=== PATIENT | male | born 1970 | race Hispanic/Latino ===

== ENCOUNTER 2019-06-20 16:10 | Inpatient (IN) | payer SELFPAY ==
[2019-06-20] MEDS ORDERED: Clindamycin/D5W 900 mg/50 ml Premix Bag ONE (16:56)
[2019-06-20] MEDS ORDERED: Adacel (T-DAP) 0.5 ML SYRINGE ONE (16:56)
--- NOTE | 2019-06-20 16:57 | RAD ---
XR Elbow Lt 2 View INDICATION: History of left upper extremity, concern for foreign body with swelling and redness FINDINGS: Bones: No acute fracture or subluxation is evident.. Joints: No joint capsular distention. Radiocapitellar alignment appears within normal limits. Soft tissues: There is circumferential soft tissue swelling of the left elbow. No radiopaque foreign body is demonstrated. IMPRESSION: Soft tissue swelling left elbow. No radiopaque foreign body.
[2019-06-20 17:42] LABS: Mean Corpuscular HGB CONC 36.3 g/dL (32.0-36.0); Mean Corpuscular Volume 93.7 fL (78.0-98.0); Platelet Count 337 thou/uL (130-400); RBC Distribution Width 10.8 % (11.5-14.5); Red Blood Cell (RBC) Count 3.24 mill/uL (4.70-6.10); White Blood Cell (WBC) Count 15.8 thou/uL (4.8-10.8)
[2019-06-20 17:52] LABS: ALT (SGPT) 16 U/L (8-55); AST (SGOT) 22 U/L (5-34); Albumin 2.1 g/dL (3.5-5.0); Alkaline Phosphatase 116 U/L (40-150); Anion Gap 17 mmol/L (10-20); BUN (Urea Nitrogen) 35 mg/dL (8.9-20.6); Bilirubin, Total 0.3 mg/dL (0.2-1.2); CK (CPK) 182 U/L (30-200); Calc. Creatinine Clearance 0 mL/min (70-130); Calcium 7.8 mg/dL (7.8-10.44); Carbon Dioxide 17 mmol/L (22-29); Chloride 89 mmol/L (98-107); Estimated GFR-MDRD 33; Globulin 3.3 g/dL (2.4-3.5); Potassium 4.2 mmol/L (3.5-5.1); Protein, Total 5.4 g/dL (6.0-8.3)
[2019-06-20 17:57] LABS: Glucose 743 mg/dL (70-105); Sodium 119 mmol/L (136-145)
[2019-06-20] MEDS ORDERED: Insulin Regular 300 UNITS/3 ML VIAL ONE (18:08)
[2019-06-20 18:12] LABS: Band 9 % (5-11); Eosinophils 1 % (0-10); Lymphocytes 4 % (21-51); MDiff Complete? YES; Monocytes 2 % (0-10); Neutrophil 84 % (42-75); Platelet Morphology Comment Appears Adequate; Polychromasia SLIGHT = 2-3 cells (100X) (0-2/hpf)
[2019-06-20] MEDS ORDERED: Acetaminophen 325 MG TAB PO PRN (19:49)
[2019-06-20] MEDS ORDERED: HYDROcodone/Acetaminophen 5/325 mg Tablet PO PRN (19:49)
[2019-06-20] MEDS ORDERED: Dextrose 50% Abboject 50 ML SYRINGE SLOW IVP PRN (19:58)
[2019-06-20] MEDS ORDERED: Dextrose 5% in Water 1,000 ML IV PRN (19:58)
[2019-06-20] MEDS ORDERED: Amlodipine 5 MG TAB PO SCH (20:30)
[2019-06-20] MEDS ORDERED: Acetaminophen 325 MG TAB ONE (21:47)
[2019-06-20] MEDS: Sodium Chloride 0.45% 1,000 ML IV SCH (21:55)
[2019-06-20 22:07] LABS: Anion Gap 18 mmol/L (10-20); BUN (Urea Nitrogen) 32 mg/dL (8.9-20.6); Calc. Creatinine Clearance 0 mL/min (70-130); Calcium 7.7 mg/dL (7.8-10.44); Carbon Dioxide 17 mmol/L (22-29); Chloride 94 mmol/L (98-107); Estimated GFR-MDRD 36; Potassium 3.8 mmol/L (3.5-5.1); Sodium 125 mmol/L (136-145)
--- NOTE | 2019-06-20 22:07 | ULT ---
Renal ultrasound: 06/20/2019 COMPARISON: None HISTORY: Kidney disease, acute versus chronic TECHNIQUE: Multiplanar grayscale sonographic imaging of the kidneys and urinary bladder obtained. FINDINGS: The right kidney measures 9.1 x 4.6 x 4.5 cm. Cortical thickness on the right is 1.5 cm. No renal mass, hydronephrosis, or stone noted on the right. Left kidney measures 12.1 x 6.0 x 5.7 cm and demonstrates no stone, hydronephrosis, or mass. Trace free fluid is seen adjacent to bilateral kidneys. A small amount of nonspecific debris is noted within the urinary bladder. IMPRESSION: Incidental findings as detailed above. No evidence for hydronephrosis. Nonspecific small volume urinary bladder debris and trace nonspecific free fluid adjacent to bilateral kidneys.
[2019-06-20 22:16] LABS: Glucose 574 mg/dL (70-105)
[2019-06-20 22:53] VITALS: BMI 18.8
[2019-06-20] MEDS: Piperacillin/Tazobactam 3.375 GM in Sodium Chloride 0.9% 100 ML IVPB SCH (23:19)
[2019-06-20] MEDS ORDERED: Sodium Chloride 0.9% 1,000 ML IV SCH (23:30)
[2019-06-21 00:06] LABS: Anion Gap 18 mmol/L (10-20); BUN (Urea Nitrogen) 30 mg/dL (8.9-20.6); Calc. Creatinine Clearance 44 mL/min (70-130); Calcium 7.8 mg/dL (7.8-10.44); Carbon Dioxide 15 mmol/L (22-29); Chloride 94 mmol/L (98-107); Estimated GFR-MDRD 37; Potassium 3.7 mmol/L (3.5-5.1); Sodium 123 mmol/L (136-145)
[2019-06-21 00:09] LABS: Glucose 558 mg/dL (70-105)
[2019-06-21 00:32] LABS: Bacteria/HPF None Seen HPF (None Seen); RBC/HPF 0-3 HPF (0-3); Squamous Epithelial None Seen HPF (0-3); WBC/HPF 0-3 HPF (0-3)
[2019-06-21] MEDS ORDERED: D5 1/2 NS w/20 mEq KCL 1,000 ML IV PRN (00:43)
[2019-06-21] MEDS ORDERED: CCU Electrolyte Replacement 1 EACH IVPB ONE (00:43)
[2019-06-21] MEDS ORDERED: Sodium Chloride 0.9% 1,000 ML IV PRN (00:43)
[2019-06-21] MEDS ORDERED: Dextrose 5 %-0.45 % NaCl 1,000 ML IV PRN (00:43)
[2019-06-21] MEDS ORDERED: HUMULIN R 100 UNITS in Sodium Chloride 0.9% 100 ML IVPB SCH (00:45)
[2019-06-21] MEDS ORDERED: Potassium Chloride 40 MEQ in Sodium Chloride 0.9% 250 ML 250 ML IVPB PRN (00:47)
[2019-06-21] MEDS ORDERED: Magnesium 2 GM/50 ML 2 GM in Premix Bag 1 BAG IVPB PRN (00:47)
[2019-06-21] MEDS ORDERED: Potassium Phosphate 15 MMOL in Sodium Chloride 0.9% 250 ML 250 ML IV PRN (00:47)
[2019-06-21] MEDS ORDERED: Potassium Chloride 40 MEQ in Premix Bag 1 BAG IVPB PRN (00:47)
[2019-06-21] MEDS ORDERED: Potassium Phosphate 12 MMOL in Sodium Chloride 0.9% 250 ML 250 ML IV PRN (00:47)
[2019-06-21] MEDS ORDERED: PHOS-NAK 1 PKT PACK PO PRN ×2 (00:47)
[2019-06-21] MEDS ORDERED: Magnesium Oxide 400 MG TAB PO PRN ×2 (00:47)
[2019-06-21] MEDS ORDERED: Potassium Chloride 20 MEQ TAB PO PRN (00:47)
[2019-06-21] MEDS ORDERED: CCU ELECTROLYTE REPLACEMENT PROTOCOL FS PRN (00:47)
[2019-06-21] MEDS ORDERED: Potassium Phosphate 9 MMOL in Sodium Chloride 0.9% 100 ML IVPB PRN (00:47)
--- NOTE | 2019-06-21 02:20 | HP ---
CHIEF COMPLAINT: Left arm infection. HISTORY OF PRESENT ILLNESS: This patient is a 48-year-old male who has some mental health issues, which he says is only related to depression. He states that he ran out of his insulin 10-14 days ago and has not had money to get any more insulin. He reports about 10 days ago he was carrying some boards across his forearms when a small nail on one of the boards poked his left antecubital area. Since that time, he has developed progressive erythema, pain and swelling proximal to that puncture site. He reports some drainage at the puncture site itself. He denies any fevers or chills. REVIEW OF SYSTEMS: He does admit to significant polyuria, polydipsia and dry mouth. He has some lower extremity edema, which he reports has only been present for a couple of weeks. All of the systems reviewed. All pertinent positives and negatives noted in history of present illness. PAST MEDICAL HISTORY: Notable for hypertension, diabetes, and peripheral neuropathy. PAST SURGICAL HISTORY: Right 2nd toe amputation secondary to a diabetic wound that would not heal. FAMILY HISTORY: Mother is . She had diabetes. Father in an automobile accident. SOCIAL HISTORY: The patient says he will have a beer every few weeks. Denies drugs or tobacco. He is unemployed. Lives with his brother. He is full code. CURRENT MEDICATIONS: 1. Lisinopril 10 mg daily. 2. Novolin 70/30 20 units q.a.m. and 10 q.p.m.; however, the patient is not currently taking the medications. ALLERGIES: NONE. PHYSICAL EXAMINATION: VITAL SIGNS: BP 172/99, pulse 91, respirations 22, temperature 98.1, O2 saturation 100% on room air. GENERAL APPEARANCE: Age-appropriate male, he is very thin. He is in no distress. He is awake and alert. He seems to be doing some swallowing as if he is having some drainage. HEENT: MIHIR, no acute lesions. Dry oral mucosa. No drainage noted. NECK: Supple and symmetric with no lymphadenopathy, JVD, or carotid bruits. HEART: Regular rate and rhythm without murmurs, gallops, or rubs. LUNGS: Clear to auscultation bilaterally. No wheezes or rales. ABDOMEN: Soft, nontender, and nondistended. Positive bowel sounds. No masses. No organomegaly. EXTREMITIES: He has this abscess on the left antecubital area emanating more proximally and medial medially. There is open area about a 1 cm x 1.5 in the antecubital area, which is a white denuded area. I cannot express any pus from this area, although he says this is where he has had some drainage coming proximally that there is about a 4-5 cm, very firm, indurated, very tender area with no fluctuance. This area extends medially and cephalad and becomes progressively less firm as it goes up toward the axilla. This area is very erythematous and warm. He reports tenderness to palpation in this area, although it does not appear to be exquisite tenderness. 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 He has 2+ pitting edema at the left ankle to the mid calf and 1+ in the right ankle to the mid calf. NEUROLOGICAL: The patient appears to be intact, moving all extremities spontaneously. Cranial nerves are intact. PSYCHIATRIC: The patient is a bit flat, but pleasant and cooperative. Normal behavior otherwise. LABORATORY DATA: White count 15.8, hemoglobin 11.0, platelets 337. Sodium 119, potassium 4.2, chloride 89, CO2 is 17, BUN 35, creatinine 2.13, glucose 743, subsequent was 538. Lactic acid 1.1. AST 22, ALT 16, alkaline phosphatase 116. CK 182, albumin 2.1. Beta hydroxybutyrate 3.2. IMAGING DATA: X-ray of the left elbow shows soft tissue swelling with no foreign body. A bedside ultrasound performed by the ED physician reportedly showed no pocket in this lesion. IMPRESSION AND PLAN: 1. Abscess of the left upper extremity. This has a fairly strange appearance and it is extremely firm and tender, but not exquisitely tender. There is no drainage. Presently, there is no fluctuance on palpation and no pocket of fluid seen on ultrasound. We will initiate antibiotics, patient received clindamycin in the emergency department. We will expand that to vancomycin and Zosyn. 2. Sepsis. Given the patient's worsening renal function, his elevated white count and his severe hyperglycemia in the presence of an infection qualify for the diagnosis of sepsis. The patient received 2 L of fluid in the emergency department. We will continue to hydrate. Continue with the antibiotics. Surgery has been consulted. However, the patient has a number of metabolic issues to address initially. In spite of this, the patient actually appears fairly nontoxic. 3. Diabetic ketoacidosis. The patient's anion gap is only 17. However, his blood sugars were significantly elevated. He has an underlying infection and his beta hydroxybutyrate is elevated at 3.2. I do not believe it warrants insulin drip. He has received 10 units of insulin in the emergency department. We will give him sliding scale insulin and dose of some long-acting Lantus. 4. Uncontrolled diabetes with blood sugar of 743 down to 538 after the initial dose of insulin. We will continue with the sliding scale. Check a hemoglobin A1c in the morning. 5. Hyponatremia. The patient has pseudohyponatremia secondary to the significantly elevated glucose. We will recheck again in couple hours to ensure, if this is improving with the treatment of the blood sugar and in fact does not represent a true hyponatremia. 6. Acute renal insufficiency. Unfortunately do not have a lot of data points on this patient. His last labs here were in 2014. At that time, his GFR was 0.83, this represents a significant change. However, his BUN to creatinine ratio would not signify a significant prerenal azotemia and would be more likely to suggest a true parenchymal disease. The patient's albumin is low at 2.1, as is total protein suggesting he likely has a significant proteinuria. This would be supported by the significant peripheral edema. We will obtain urine studies and a renal ultrasound. We will go ahead and consult Nephrology as well. 7. Anemia appears to be anemia related to more likely chronic kidney disease. 8. Hypertension. Given the renal function, we will hold the ELANA inhibitor and start amlodipine. 9. Psychiatric: The patient reports depression, says he is on psych medications. We do not have any way of knowing at this point what his psych medications are. We will need to try to reach out to [facility] in the morning to see, if they have some record of the medications that he is actually supposed to be taking and try to get him back on those. Job ID: [id number]
[2019-06-21] MEDS: Sodium Chloride 0.45% 1,000 ML IV SCH ×3 (03:03→20:33)
[2019-06-21] MEDS: HYDROcodone/Acetaminophen 5/325 mg Tablet PO PRN ×3 (06:06→20:33)
[2019-06-21] MEDS: Piperacillin/Tazobactam 3.375 GM in Sodium Chloride 0.9% 100 ML IVPB SCH ×4 (06:06→23:11)
[2019-06-21 06:37] LABS: Hemoglobin A1c 17.2 % (4.0-6.0)
[2019-06-21 06:45] LABS: ALT (SGPT) 15 U/L (8-55); AST (SGOT) 18 U/L (5-34); Alkaline Phosphatase 101 U/L (40-150); Anion Gap 13 mmol/L (10-20); BUN (Urea Nitrogen) 26 mg/dL (8.9-20.6); Bilirubin, Total 0.3 mg/dL (0.2-1.2); Calc. Creatinine Clearance 51 mL/min (70-130); Calcium 7.9 mg/dL (7.8-10.44); Carbon Dioxide 17 mmol/L (22-29); Chloride 102 mmol/L (98-107); Estimated GFR-MDRD 45; Globulin 3.1 g/dL (2.4-3.5); Glucose 148 mg/dL (70-105); Potassium 3.1 mmol/L (3.5-5.1); Protein, Total 5.1 g/dL (6.0-8.3); Sodium 129 mmol/L (136-145)
[2019-06-21] MEDS ORDERED: Dextrose 5%-Lactated Ringers 1,000 ML IV SCH (08:00)
[2019-06-21 08:31] LABS: Magnesium 1.8 mg/dL (1.6-2.6); Phosphorus 2.5 mg/dL (2.3-4.7)
[2019-06-21] MEDS ORDERED: Amlodipine 5 MG TAB PO SCH (09:00)
[2019-06-21] MEDS ORDERED: Enoxaparin Sodium 30 MG/0.3 ML SYRINGE SC SCH (09:00)
[2019-06-21] MEDS: Potassium Chloride 20 MEQ TAB PO SCH ×2 (09:07→10:17)
[2019-06-21] MEDS: Famotidine 20 MG TAB PO SCH (09:09)
--- NOTE | 2019-06-21 09:27 | CON ---
DATE OF CONSULTATION: 06/21/2019 REASON FOR CONSULTATION: Acute kidney injury and proteinuria. REQUESTING PHYSICIAN: Endy Car MD HISTORY OF PRESENT ILLNESS: A 48-year-old male patient with known history of diabetes, status post amputation of right second toe, and mental illness, who was admitted due to worsening left upper limb swelling and redness associated with drainage and generalized weakness and illness. The patient reportedly ran out of his insulin about 10 to 14 days ago. About the same time also, he had a nail puncture wound to the left antecubital fossa, which was associated with swelling, redness, and some drainage. He presented to the ED due to worsening left arm swelling and erythema as well as drainage and was found to be in DKA. He was admitted to the IMCU. He was found to have elevated creatinine as well as hypoalbuminemia and proteinuria necessitating Nephrology consult. The patient denied nausea, vomiting, abdominal pain, chest pain, fever, cough, shortness of breath, dysuria, or hematuria, but admitted to chronic bilateral leg swelling, which has not gotten worse. The patient admitted to using [id number] pain medication due to pain of the left upper limb. PAST MEDICAL HISTORY: 1. Hypertension. 2. Diabetes. 3. Diabetic neuropathy. 4. Diabetic foot ulcer status post right second toe amputation. PAST SURGICAL HISTORY: Right second toe amputation. FAMILY HISTORY: Significant for dialysis in mother. SOCIAL HISTORY: The patient drinks alcohol occasionally. Denied recreational drug use or tobacco. He is unemployed and lives with a brother. ALLERGIES: NO KNOWN DRUG ALLERGIES REPORTED. CURRENT HOME MEDICATIONS: 1. Lisinopril 10 mg p.o. daily. 2. Novolin 70/30 of 20 units in the morning and 10 units at bedtime. The patient; however, has not taken these in the last 2 weeks. REVIEW OF SYSTEMS: A 12-point review of system performed was negative other than pertinent positives and negatives included in the history of present illness. PHYSICAL EXAMINATION: VITAL SIGNS: Temperature 98.8, pulse 83, respiratory rate 18, SpO2 of 100% on room air, and blood pressure is 148/89. GENERAL: Slim male, in no obvious distress. Afebrile. Anicteric. Acyanotic. HEENT: Normocephalic and atraumatic. Oral mucosa is moist. NECK: Supple. Nontender with good range of motion. No lymphadenopathy appreciated. CARDIOVASCULAR: Regular rhythm and rate with normal heart sounds one and two. RESPIRATORY: Fair air entry bilaterally with few transmitted sounds. No obvious rhonchi or use of accessory muscles appreciated. GI: Full, soft, nontender, and nondistended with normal bowel sounds. EXTREMITIES: Left elbow area swelling as well as a localized area distal arm associated with erythema and some skin breakdown with minimal drainage. Moderate bilateral leg edema noted. Prior amputation of right second toe noted as well. SOFTWARE TEAM LEADER: Conscious and alert and oriented x3 with appropriate mental status. Cranial nerves 2 through 12 are grossly intact. The patient seems to be slow in mentation. Moves all extremities. DIAGNOSTIC DATA: CBC on June 20, showed WBC count of 15.8, hemoglobin of 11.0, MCV of 93.7, and platelet of 337. CMP today showed sodium 129, potassium 3.1, chloride 102, CO2 of 17, BUN 26, creatinine 1.64, glucose 140, calcium 7.9, total bilirubin 0.3, AST 18, ALT 15, alkaline phosphatase 101, total protein 5.1, albumin 2.0, and globulin 3.1. Of note; however, on presentation on June 20, sodium was 119, potassium was 4.2, chloride was 89, CO2 was 17, BUN was 35, creatinine was 2.13, glucose was 743, and calcium was 7.8. Urine microscopy showed 0 to 3 rbc and 0 to 3 WBC count and random total protein was 363. Beta-hydroxybutyrate done on presentation was 3.2. ASSESSMENT: 1. Acute kidney injury: Most likely due to hemodynamic factors related to volume depletion due to diabetic ketoacidosis. Creatinine is improving with fluid resuscitation. 2. Hyponatremia: This is due to volume contraction with appropriate ADH secretion. 3. Hypokalemia: Due to poor oral intake as well as increased renal losses from glucose-induced diuresis. 4. Chronic kidney disease with proteinuria: Most likely related to uncontrolled diabetes mellitus. 5. Bilateral leg edema: Most likely related to hypoalbuminemia. 6. Hypoalbuminemia: Concerning for poor oral intake as well as renal losses of protein. 7. Uncontrolled diabetes with hemoglobin A1c of 17. 8. Hypertension: BP control currently is acceptable. 9. Left upper limb abscess and cellulitis associated with sepsis. 10. Psychiatric illness with possible cognitive impairment. PLAN: 1. We will continue crystalloids. 2. We will also replete serum potassium. We will also get serum phosphorus and magnesium and replete them as needed. 3. We will get urine electrolytes as well as urine protein creatinine ratio. We will also consider getting 24-hour urine collection to quantify the proteinuria. 4. Renal ultrasound is contemplated as well as bilateral lower extremity Dopplers. 5. We will also get vitamin D given hypocalcemia to rule out vitamin D deficiency. Many thanks for involving us in the care of this patient. We will follow along with you. Job ID: [id number]
[2019-06-21 10:02] LABS: Creatinine, Urine 20.25 mg/dL (63-166)
--- NOTE | 2019-06-21 10:26 | HP ---
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 The patient was admitted yesterday by the hospitalist service. He is on an insulin drip. His hemoglobin is 11 and white count 15. His hemoglobin A1c was 17.2. He reports he had run out of insulin recently and quit taking it. His BUN is 26 and creatinine 1.64. The patient has an area of infection, cellulitis, induration in antecubital left and upper arm. Renal ultrasound was obtained to evaluate his chronic kidney disease and there is no obstructive uropathy. ALLERGIES: NONE. SOCIAL HISTORY: Tobacco, 1/2 pack per day. Alcohol, occasionally. MEDICATIONS: At home, he takes: 1. Lisinopril. 2. Insulin, although he ran out of this and quit taking it for some time. Currently, he is on: 1. Vancomycin. 2. Antihypertensive. PAST SURGICAL HISTORY: Toe amputation. PAST MEDICAL HISTORY: Hypertension; diabetes, insulin dependent chronic kidney disease. PHYSICAL EXAMINATION: VITAL SIGNS: Height 6 feet 2 inches, weight 147 pounds, and 18 BMI. Temperature 98.8, heart rate 99, and blood pressure 148/89. HEAD, EYES, EARS, NOSE, AND THROAT: Unremarkable. LUNGS: Clear to auscultation. CARDIAC: Regular rate and rhythm without murmur or gallop. ABDOMEN: Soft and nontender. EXTREMITIES: Consistent with above history of toe amputation. Palpable radial pulses. Left antecubital area and anterior upper arm just above the AC areas, severe induration and fluctuance. ASSESSMENT AND PLAN: 1. Severe diabetic infection of left upper arm. Plan incision and drainage today. We will keep him n.p.o. until that is performed. We will leave the wound open for healing by secondary intention. This was discussed with the patient. 2. Noncompliant diabetic, with elevated hemoglobin A1c. 3. Chronic kidney disease. 4. Insulin-dependent diabetes, noncompliant. 5. Hypertension. 6. Poor IV access. Plan placement of a possible central line during the operation. Job ID: [id number]
[2019-06-21 11:47] LABS: Anion Gap 11 mmol/L (10-20); BUN (Urea Nitrogen) 24 mg/dL (8.9-20.6); Calc. Creatinine Clearance 54 mL/min (70-130); Calcium 7.7 mg/dL (7.8-10.44); Carbon Dioxide 20 mmol/L (22-29); Chloride 104 mmol/L (98-107); Estimated GFR-MDRD 47; Glucose 123 mg/dL (70-105); Potassium 3.9 mmol/L (3.5-5.1); Sodium 131 mmol/L (136-145)
[2019-06-21] MEDS ORDERED: DC Electrolyte Protocol FS ONE (11:49)
[2019-06-21 11:51] LABS: Albumin 2.1 g/dL (3.5-5.0); Anion Gap 13 mmol/L (10-20); BUN (Urea Nitrogen) 23 mg/dL (8.9-20.6); BUN/Creatinine Ratio 14.74; Calc. Creatinine Clearance 54 mL/min (70-130); Calcium 7.8 mg/dL (7.8-10.44); Carbon Dioxide 19 mmol/L (22-29); Chloride 101 mmol/L (98-107); Estimated GFR-MDRD 48; Glucose 121 mg/dL (70-105); Potassium 3.7 mmol/L (3.5-5.1); Sodium 129 mmol/L (136-145)
--- NOTE | 2019-06-21 11:53 | PDOC.HOSPP ---
- Subjective Encounter Date: 06/21/19 Encounter Time: 11:25 Subjective: Patient seen and examined for DKA and Left arm abscess. No N/V or fever. No new complaints. No overnight events - Objective Vital Signs & Weight: Vital Signs (12 hours) Temp Pulse Pulse Ox 06/21/19 11:16 98.2 F 06/21/19 09:09 82 06/21/19 08:00 99 06/21/19 07:29 98.8 F 06/21/19 03:50 99.0 F 06/21/19 00:42 98.8 F Weight Weight 147 lb 3.2 oz Most Recent Monitor Data Heart Rate from ECG 83 NIBP 148/89 NIBP BP-Mean 108 Respiration from ECG 27 SpO2 100 I&O: 06/20/19 06/21/19 06/22/19 06:59 06:59 06:59 Intake Total 1863 Output Total 1420 Balance 443 Result Diagrams: 06/20/19 17:13 06/21/19 11:12 Additional Labs: Accuchecks 06/21/19 06/21/19 06/21/19 11:07 10:21 09:06 POC Glucose 124 H 130 H 140 H 06/21/19 06/21/19 06/21/19 08:07 07:00 05:50 POC Glucose 86 111 H 158 H 06/21/19 06/21/19 06/21/19 05:03 04:09 03:03 POC Glucose 300 H 451 H 477 H 06/21/19 06/20/19 06/20/19 02:06 22:14 19:07 POC Glucose 453 H Greater than 550 H* 538 H Radiology Reviewed by me: Yes (Left arm XR - No Osteo) EKG Reviewed by me: Yes (Tele SR) ROS - Review of Systems Respiratory: denies: cough, dry, shortness of breath, hemoptysis, SOB with excertion, pleuritic pain, sputum, wheezing, other Cardiovascular: denies: chest pain, palpitations, orthopnea, paroxysmal noc. dyspnea, edema, light headedness, other Gastrointestinal: denies: nausea, vomitting, abdominal pain, diarrhea, constipation, melena, hematochezia, other - Medication Medications: Active Medications Generic Name Dose Route Start Last Admin Trade Name Freq PRN Reason Stop Dose Admin Acetaminophen 650 mg 06/20/19 19:49 06/20/19 21:56 Tylenol PO 650 mg Q4H PRN Administration Headache/Fever/Mild Pain (1-3) Hydrocodone Bitart/Acetaminophen 1 tab 06/20/19 19:49 06/21/19 10:15 [place]on 5/325 PO 1 tab Q4H PRN Administration Moderate Pain (4-6) Hydrocodone Bitart/Acetaminophen 2 tab 06/20/19 19:49 06/21/19 06:06 [place]on 5/325 PO 2 tab Q4H PRN Administration Severe Pain (7-10) Amlodipine Besylate 5 mg 06/21/19 09:00 06/21/19 09:09 Norvasc PO 5 mg DAILY RADHA Administration Enoxaparin Sodium 30 mg 06/21/19 09:00 06/21/19 09:10 Lovenox SC 30 mg 0900 RADHA Administration Famotidine 20 mg 06/21/19 09:00 06/21/19 09:09 Pepcid PO 20 mg DAILY RADHA Administration Piperacillin Sod/Tazobactam 100 mls @ 200 mls/hr 06/20/19 23:59 06/21/19 06: 06 Sod 3.375 gm/ Sodium Chloride IVPB 100 mls Q6HR RADHA Administration Sodium Chloride 1,000 mls @ 250 mls/hr 06/21/19 00:43 06/21/19 01:00 Normal Saline 0.9% IV 1,000 mls .Q4H PRN Administration SEE STEP 3 OF DKA PROTOCOL Protocol Dextrose/Lactated Ringer's 1,000 mls @ 250 mls/hr 06/21/19 08:00 06/21/19 09: 08 D5 Lr IV 06/21/19 11:59 1,000 mls .Q4H RADHA Administration Sodium Chloride 10 ml 06/21/19 09:00 06/21/19 09:10 Flush - Normal Saline IVF 10 ml Q12HR RADHA Administration - Exam NAD Neck: supple, no JVD Heart: RRR, no murmur, no rubs, normal peripheral pulses Respiratory: CTAB, no wheezes, no rales, no ronchi Gastrointestinal: soft, non-tender, no guarding, no rigidity Extremities: no cyanosis, no edema Skin: no rashes Skin - other findings: Left arm abscess with tenderness/warmth Neurological: no new deficit Hosp A/P (1) DKA (diabetic ketoacidoses) Code(s): E11.10 - TYPE 2 DIABETES MELLITUS WITH KETOACIDOSIS WITHOUT COMA Status: Acute Qualifiers: Diabetes mellitus type: type 2 (2) Abscess of left arm Code(s): L02.414 - CUTANEOUS ABSCESS OF LEFT UPPER LIMB Status: Acute (3) MADELEINE (acute kidney injury) Code(s): N17.9 - ACUTE KIDNEY FAILURE, UNSPECIFIED Status: Acute (4) HTN (hypertension) Code(s): I10 - ESSENTIAL (PRIMARY) HYPERTENSION Status: Chronic (5) CKD (chronic kidney disease) stage 3, GFR 30-59 ml/min Code(s): N18.3 - CHRONIC KIDNEY DISEASE, STAGE 3 (MODERATE) Status: Chronic (6) Medical non-compliance Code(s): Z91.19 - PATIENT'S NONCOMPLIANCE W OTH MEDICAL TREATMENT AND REGIMEN (7) Hypokalemia Code(s): E87.6 - HYPOKALEMIA Status: Acute (8) Hypomagnesemia Code(s): E83.42 - HYPOMAGNESEMIA Status: Acute (9) Hypophosphatemia Code(s): E83.39 - OTHER DISORDERS OF PHOSPHORUS METABOLISM Status: Acute - Plan DVT proph w/SCDs For I&D today Cont Vancomycin and Zosyn Monitor Vancomycin level Start NPH 10 units HS DC Insulin drip 1/2 NS @ 125 ml/hr (Complete bag of D5 RL @ 75 ml) Moderate sliding scale Replace electrolytes Transfer to medical AM labs
[2019-06-21] MEDS ORDERED: K-Phos Neutral 250 MG TAB PO SCH (12:00)
[2019-06-21] MEDS ORDERED: Ondansetron PF 4 MG/2 ML Vial ONE (12:03)
[2019-06-21] MEDS ORDERED: Lidocaine 2% PF 5 ML VIAL ONE ×2 (12:03→13:56)
[2019-06-21] MEDS ORDERED: diphenhydrAMINE 50 MG/ML VIAL ONE (12:03)
[2019-06-21] MEDS ORDERED: PROPOFOL 200 MG/20 ML VIAL ONE (12:03)
--- NOTE | 2019-06-21 12:24 | CON ---
DATE OF CONSULTATION: HISTORY OF PRESENT ILLNESS: The patient presented to the hospital with left upper extremity swelling, pus draining. Apparently, he injured his hand, lifting some firewood a week ago. He goes to [facility] for routine care. He is mentally challenged. He has history of uncontrolled diabetes, ran out of his medication. We have seen him because in the MICU consult. He denies any pain, difficulty breathing, shortness of breath, cough. Former smoker, a pack for 3 days. No history of pneumonia or TB. PAST MEDICAL HISTORY: Uncontrolled diabetes, neuropathy, and hypertension. PAST SURGICAL HISTORY: Right toe surgery. SOCIAL HISTORY: Presently disabled. HOME MEDICATIONS: Include; 1. Lisinopril 5. 2. Insulin NPH 70/30 of 20 units. ALLERGIES: NONE. REVIEW OF SYSTEMS: Ten-point negative. PHYSICAL EXAMINATION: GENERAL: On examination, awake, alert, and responsive. VITAL SIGNS: Blood pressure 140/89, saturations are 100%, respirations 18, and pulse 80. CHEST: Decreased breath sounds. No wheezing. CARDIAC: Normal S1 and S2. No gallops. ABDOMEN: No masses. EXTREMITIES: His right forearm and arm has cellulitis and a large pus fluctuating lesion. LABORATORY DATA: His hemoglobin A1c was 17.2. His creatinine is 1.6, sodium 129. White count 15,000, H and H are 9 and 30, platelet count is 330. ASSESSMENT: 1. Uncontrolled diabetes. 2. Left forearm and arm cellulitis, abscess. 3. Azotemia. 4. Hypertension. 5. Neuropathy. PLAN: He is on vancomycin, which should be adequate at this stage. He needs I and D, drainage of his abscess. Await cultures. Adjust antibiotics thereafter. Pulmonary will follow while in the MICU. Job ID: [id number]
[2019-06-21] MEDS ORDERED: Sodium Chloride 0.9% 100 ML ONE (12:55)
[2019-06-21] MEDS ORDERED: Piperacillin/Tazobactam 3.375 GM VIAL ONE (12:55)
[2019-06-21] MEDS ORDERED: Bupivacaine HCl 0.5%/Epinephrine 1:200,000/PF 30 ml Vial ONE (13:56)
[2019-06-21] MEDS ORDERED: Fentanyl 100 MCG/2 ML VIAL ONE (14:13)
[2019-06-21] MEDS ORDERED: Acetaminophen 500 MG TAB PO PRN (15:25)
[2019-06-21] MEDS ORDERED: traMADol HCl 50 MG TAB PO PRN ×2 (15:25)
[2019-06-21] MEDS ORDERED: Meperidine HCl/PF 25 MG/ML VIAL SLOW IVP PRN (15:40)
[2019-06-21] MEDS ORDERED: Promethazine HCl 25 MG/ML VIAL SLOW IVP PRN (15:40)
[2019-06-21] MEDS ORDERED: Ondansetron HCl/PF 4 MG/2 ML Vial IVP PRN (15:40)
--- NOTE | 2019-06-21 15:59 | RAD ---
Exam: Chest one view HISTORY:Central line placement Comparison: 09/27/2012 FINDINGS: Cardiac silhouette: Normal Aorta: Unremarkable Pulmonary vessels: Normal Costophrenic angles: Clear LUNGS: No masses or consolidation. Height and tubes: Right-sided subclavian central venous catheter with the distal tip projecting over the cavoatrial junction. Pneumothorax: None Osseous abnormalities: None IMPRESSION: 1. Right-sided central venous catheter as above. No pneumothorax.
[2019-06-21] MEDS: K-Phos Neutral 250 MG TAB PO SCH ×3 (16:35→16:40)
--- NOTE | 2019-06-21 20:10 | OP ---
DATE OF PROCEDURE: 06/20/2019 PREOPERATIVE DIAGNOSES: Complicated abscess, left arm antecubital area and poor IV access. POSTOPERATIVE DIAGNOSES: Complicated abscess, left arm antecubital area with abscess extending deep to the fascia intramuscular in the biceps and antecubital area and tracking, and poor IV access PROCEDURES PERFORMED: Incision and drainage of complicated abscess, left arm with washout and application of wound VAC. Wound Care Team arrived to do that. Right subclavian vein central line. ANESTHESIA: General anesthesia, local 0.5% Marcaine with epinephrine 30 mL. DESCRIPTION OF PROCEDURE: The patient was taken to the operating room, where under general anesthesia, chest and neck were prepared with ChloraPrep and draped in routine fashion. Right subclavian vein central line placed using Seldinger technique, placed in sterile dressing, aspirating each port with blood and flushed with saline solution. Sterile dressings were applied. Left upper extremity was prepared with ChloraPrep and draped in routine fashion. Incision was made in the antecubital area in the anterior mid upper arm, making 8 cm incision in the upper arm and about a 3 cm in the antecubital area, evacuated a copious amount of purulent material that penetrated deep to the fascia intramuscular to the biceps muscle and tracked into the antecubital area through the second wound. This wound was irrigated copiously with saline solution. Wound Care Team arrived to place wound VAC after local anesthetic was infiltrated in the skin and subcutaneous tissue. The patient tolerated the procedure well. Job ID: [id number]
[2019-06-21] MEDS: HumaLOG 300 UNITS/3 ML VIAL SC PRN (20:36)
[2019-06-21] MEDS ORDERED: Insulin Glargine 15 UNITS in Pre-Filled Syringe 1 EACH SC SCH (21:00)
[2019-06-21] MEDS ORDERED: Vancomycin HCl 1 GM in Premix Bag 1 BAG IVPB SCH (22:00)
[2019-06-21] MEDS: NPH, Human Insulin Isophane 300 UNIT/3 ML VIAL SC SCH (22:04)
[2019-06-22] MEDS: HYDROcodone/Acetaminophen 5/325 mg Tablet PO PRN ×6 (00:45→22:05)
[2019-06-22] MEDS: HumaLOG 300 UNITS/3 ML VIAL SC PRN ×4 (01:53→20:33)
[2019-06-22] MEDS: Sodium Chloride 0.45% 1,000 ML IV SCH ×5 (01:55→22:01)
[2019-06-22 04:32] LABS: #Eosinphils 0.2 thou/uL (0.0-0.7); #Lymphocytes 1.5 thou/uL (1.20-3.40); #Neutrophils 13.1 thou/uL (1.40-6.50); %Basophils 0.2 % (0.0-1.0); %Eosinophils 1.5 % (0.0-10.0); %Lymphocytes 9.6 % (21.0-51.0); %Monocytes 6.1 % (0.0-10.0); %Neutrophils 82.7 % (42.0-75.0); Hemoglobin 11.3 g/dL (14.0-18.0); Mean Corpuscular HGB CONC 35.1 g/dL (32.0-36.0); Mean Corpuscular Hemoglobin 33.1 pg (27.0-31.0); Mean Corpuscular Volume 94.4 fL (78.0-98.0); Mean Platelet Volume 6.8 fL (7.4-10.4); Platelet Count 418 thou/uL (130-400); RBC Distribution Width 11.1 % (11.5-14.5); White Blood Cell (WBC) Count 15.9 thou/uL (4.8-10.8)
[2019-06-22 04:48] LABS: Anion Gap 11 mmol/L (10-20); BUN (Urea Nitrogen) 22 mg/dL (8.9-20.6); Calc. Creatinine Clearance 45 mL/min (70-130); Carbon Dioxide 20 mmol/L (22-29); Chloride 102 mmol/L (98-107); Estimated GFR-MDRD 38; Glucose 131 mg/dL (70-105); Magnesium 1.7 mg/dL (1.6-2.6); Potassium 3.9 mmol/L (3.5-5.1); Sodium 129 mmol/L (136-145)
[2019-06-22 05:03] LABS: Phosphorus 3.6 mg/dL (2.3-4.7)
[2019-06-22] MEDS: Piperacillin/Tazobactam 3.375 GM in Sodium Chloride 0.9% 100 ML IVPB SCH ×4 (05:25→23:27)
[2019-06-22] MEDS ORDERED: Sodium Chloride 0.65% Nasal 44 ML BOT EA NARE PRN (06:32)
--- NOTE | 2019-06-22 08:25 | PRG ---
DATE OF SERVICE: 06/22/2019 SUBJECTIVE: This morning, he is better. He wants to go home. OBJECTIVE: VITAL SIGNS: His temperature is 99, pulse 90, respirations 16, blood pressure 140/85. GENERAL: He denies any pain, discomfort or shortness of breath. LABORATORY DATA: White count 58967. Sodium is 129. Creatinine 1.8. Chest x-ray was relatively clear. IMPRESSION: 1. Diabetes. 2. Left lung abscesses. 3. Renal failure. 4. Neuropathy. PLAN: The patient appears to be relatively stable. Continue broad-spectrum antibiotics and supportive care. Job ID: [id number]
[2019-06-22] MEDS ORDERED: Amlodipine 5 MG TAB PO SCH (08:30)
[2019-06-22] MEDS: K-Phos Neutral 250 MG TAB PO SCH ×3 (09:23→17:54)
[2019-06-22] MEDS: Famotidine 20 MG TAB PO SCH (09:23)
[2019-06-22] MEDS: Amlodipine 10 MG TAB PO SCH (09:23)
[2019-06-22] MEDS: Sodium Bicarbonate Tab 325 MG TAB PO SCH ×2 (09:23→20:26)
[2019-06-22] MEDS: Enoxaparin Sodium 40 MG/0.4 ML SYRINGE SC SCH (09:23)
[2019-06-22] MEDS: Albumin 25% 25 GM/100 ML BOT IVPB SCH ×2 (09:24→14:25)
--- NOTE | 2019-06-22 13:01 | PRG ---
DATE OF SERVICE: 06/22/2019 SERVICE: Nephrology. SUBJECTIVE: A 48-year-old admitted with left elbow abscess and cellulitis as well as DKA. Nephrology is following the patient for acute kidney injury as well as metabolic acidosis. The patient is status post I and D. Reports no new problem. OBJECTIVE: VITAL SIGNS: Temperature 99.1, pulse 97, respiratory rate 16, SpO2 of 97 on room air, blood pressure is 144/85. GENERAL: Middle-aged male, in no obvious distress. The patient is rather thin. Afebrile. Anicteric, acyanotic. HEENT: Normocephalic, atraumatic. Oral mucosa is moist. CARDIOVASCULAR: Regular rhythm and rate with normal heart sounds. RESPIRATORY: Fair air entry bilaterally with few transmitted sounds. No obvious crackle or rhonchi or use of accessory muscles was appreciated. GI: Full, soft, nontender, nondistended with normal bowel sounds. EXTREMITIES: Left elbow and adjoining arm covered with dressing. Wound VAC also noted. Bilateral leg edema noted. Mild muscle wasting of the lower extremities also noted. BEEF CATTLE GRAZIER: Conscious and alert, oriented to person and place. The patient seems low mentally. Cranial nerves 2 through 12 are grossly intact. The patient moves all extremities. DIAGNOSTIC DATA: CBC showed WBC count of 15.9, hemoglobin of 11.3, MCV of 94.4, platelet of 418. Renal function panel today showed sodium 129, potassium 3.9, chloride of 102, CO2 of 20, BUN 22, creatinine 1.88, glucose 131, calcium 8.0, magnesium 1.7, and phosphorus 3.6. ASSESSMENT: 1. Acute kidney injury. 2. Presumed baseline chronic kidney disease 3. 3. 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 4. Hypoalbuminemia: Due to urinary losses and poor oral intake. 5. Moderate protein-calorie malnutrition. 6. Uncontrolled diabetes mellitus. 7. Hypertension. 8. Left elbow abscess and cellulitis. 9. Bilateral leg edema: Related to hypoalbuminemia. 10. Hyponatremia: Due to intravascular contraction with appropriate ADH secretion. Levels are creeping up with normal saline. PLAN: 1. Continue IV fluid therapy. Also provide some albumin to expand intravascular space. 2. We will get 24-hour urine collection for creatinine clearance as well as 24-hour urine protein. 3. Increase amlodipine to 10 mg daily to get adequate BP control. 4. Continue to monitor renal function as well as electrolyte. 5. We will continue to follow along with you. Further recommendation to follow depending on review of other diagnostic tests and hospital course. Job ID: [id number]
[2019-06-22] MEDS: NPH, Human Insulin Isophane 300 UNIT/3 ML VIAL SC SCH (20:32)
--- NOTE | 2019-06-22 21:06 | PDOC.HOSPP ---
- Subjective Encounter Date: 06/22/19 Encounter Time: 08:00 Subjective: Patient seen and examined for DKA with RUE Cellulitis/abscess. s/p I&D. Pain +. No fever/chills/N/V. Appetite ok. No overnight events - Objective Vital Signs & Weight: Vital Signs (12 hours) Temp Pulse Resp BP Pulse Ox 06/22/19 20:00 98.2 F 93 18 142/80 H 94 L 06/22/19 16:11 98.3 F 87 18 150/83 H 93 L 06/22/19 14:31 98.1 F 100 16 135/82 96 06/22/19 09:25 97 06/22/19 09:23 97 Weight Admit Weight 147 lb 3.2 oz Weight 147 lb 3.2 oz Most Recent Monitor Data Heart Rate from ECG 82 NIBP 148/107 NIBP BP-Mean 120 Respiration from ECG 15 SpO2 100 I&O: 06/21/19 06/22/19 06/23/19 06:59 06:59 06:59 Intake Total 1863 2280 Output Total 9055 234 5401 Balance 443 -950 1230 Result Diagrams: 06/22/19 04:10 06/22/19 04:10 Additional Labs: Accuchecks 06/22/19 06/22/19 06/22/19 20:04 17:04 12:14 POC Glucose 216 H 204 H 208 H 06/22/19 06/22/19 06/21/19 04:26 01:52 01:22 POC Glucose 120 H 276 H 514 H ROS - Review of Systems Respiratory: denies: cough, dry, shortness of breath, hemoptysis, SOB with excertion, pleuritic pain, sputum, wheezing, other Cardiovascular: denies: chest pain, palpitations, orthopnea, paroxysmal noc. dyspnea, edema, light headedness, other Gastrointestinal: denies: nausea, vomitting, abdominal pain, diarrhea, constipation, melena, hematochezia, other - Medication Medications: Active Medications Generic Name Dose Route Start Last Admin Trade Name Freq PRN Reason Stop Dose Admin Hydrocodone Bitart/Acetaminophen 1 tab 06/20/19 19:49 06/21/19 10:15 [place] 5/325 PO 1 tab Q4H PRN Administration Moderate Pain (4-6) Hydrocodone Bitart/Acetaminophen 2 tab 06/20/19 19:49 06/22/19 17:56 [place] 5/325 PO 2 tab Q4H PRN Administration Severe Pain (7-10) Amlodipine Besylate 10 mg 06/22/19 09:00 06/22/19 09:23 Norvasc PO 10 mg DAILY RADHA Administration Enoxaparin Sodium 40 mg 06/22/19 09:00 06/22/19 09:23 Lovenox SC 40 mg 0900 RADHA Administration Famotidine 20 mg 06/21/19 09:00 06/22/19 09:23 Pepcid PO 20 mg DAILY RADHA Administration Piperacillin Sod/Tazobactam 100 mls @ 200 mls/hr 06/20/19 23:59 06/22/19 17: 54 Sod 3.375 gm/ Sodium Chloride IVPB 100 mls Q6HR RADHA Administration Vancomycin HCl 1 gm/ Device 200 mls @ 200 mls/hr 06/21/19 22:00 06/21/19 22: 04 IVPB 200 mls 2200 RADHA Administration Sodium Chloride 1,000 mls @ 250 mls/hr 06/21/19 00:43 06/21/19 01:00 Normal Saline 0.9% IV 1,000 mls .Q4H PRN Administration SEE STEP 3 OF DKA PROTOCOL Protocol Insulin Human Lispro 0 units 06/20/19 19:58 06/22/19 17:54 Humalog SC 4 unit .MODERATE SLIDING SC PRN Administration Moderate Correctional Scale Insulin Human Lispro 0 units 06/21/19 11:46 06/22/19 20:33 Humalog SC 2 unit .BEDTIME SLIDING SC PRN Administration Bedtime Correctional Scale Insulin Human NPH 10 unit 06/21/19 21:00 06/22/19 20:32 Humulin N SC 10 unit HS RADHA Administration Sodium Bicarbonate 650 mg 06/22/19 09:00 06/22/19 20:26 Bicarbonate, Sodium PO 650 mg BID RADHA Administration Sodium Chloride 10 ml 06/21/19 09:00 06/22/19 20:26 Flush - Normal Saline IVF 10 ml Q12HR RADHA Administration - Exam NAD Neck: supple, no JVD Heart: RRR, no gallops Respiratory: CTAB, no rales Gastrointestinal: soft, non-tender, normal bowel sounds Extremities: no edema Extremeties - other findings: RUE wound vac+ Hosp A/P (1) DKA (diabetic ketoacidoses) Code(s): E11.10 - TYPE 2 DIABETES MELLITUS WITH KETOACIDOSIS WITHOUT COMA Status: Acute Qualifiers: Diabetes mellitus type: type 2 (2) Abscess of left arm Code(s): L02.414 - CUTANEOUS ABSCESS OF LEFT UPPER LIMB Status: Acute (3) MADELEINE (acute kidney injury) Code(s): N17.9 - ACUTE KIDNEY FAILURE, UNSPECIFIED Status: Acute (4) HTN (hypertension) Code(s): I10 - ESSENTIAL (PRIMARY) HYPERTENSION Status: Chronic (5) CKD (chronic kidney disease) stage 3, GFR 30-59 ml/min Code(s): N18.3 - CHRONIC KIDNEY DISEASE, STAGE 3 (MODERATE) Status: Chronic (6) Medical non-compliance Code(s): Z91.19 - PATIENT'S NONCOMPLIANCE W OTH MEDICAL TREATMENT AND REGIMEN (7) Hypokalemia Code(s): E87.6 - HYPOKALEMIA Status: Acute (8) Hypomagnesemia Code(s): E83.42 - HYPOMAGNESEMIA Status: Acute (9) Hypophosphatemia Code(s): E83.39 - OTHER DISORDERS OF PHOSPHORUS METABOLISM Status: Acute - Plan s/p I&D Cont Vancomycin and Zosyn with Vancomycin level monioring Increase NPH to 10 units BID Reduce IVF to 75 ml/hr Cont sliding scale AM labs Cont wound care Pain control
[2019-06-22 21:24] LABS: Vancomycin, Trough 11.8 ug/mL
[2019-06-22] MEDS: Vancomycin HCl 750 MG in Sodium Chloride 0.9% 250 ML 250 ML IVPB SCH (22:00)
[2019-06-23] MEDS: HYDROcodone/Acetaminophen 5/325 mg Tablet PO PRN ×5 (02:52→22:49)
[2019-06-23] MEDS: Piperacillin/Tazobactam 3.375 GM in Sodium Chloride 0.9% 100 ML IVPB SCH ×4 (05:18→23:08)
[2019-06-23 07:31] LABS: Anion Gap 11 mmol/L (10-20); BUN (Urea Nitrogen) 18 mg/dL (8.9-20.6); Calc. Creatinine Clearance 52 mL/min (70-130); Calcium 7.6 mg/dL (7.8-10.44); Carbon Dioxide 22 mmol/L (22-29); Chloride 102 mmol/L (98-107); Estimated GFR-MDRD 46; Glucose 89 mg/dL (70-105); Potassium 3.6 mmol/L (3.5-5.1); Sodium 131 mmol/L (136-145)
[2019-06-23] MEDS: Sodium Bicarbonate Tab 325 MG TAB PO SCH ×2 (07:59→21:43)
[2019-06-23] MEDS: Enoxaparin Sodium 40 MG/0.4 ML SYRINGE SC SCH (08:00)
[2019-06-23] MEDS: Famotidine 20 MG TAB PO SCH (08:00)
[2019-06-23] MEDS: NPH, Human Insulin Isophane 300 UNIT/3 ML VIAL SC SCH ×2 (08:00→21:44)
[2019-06-23] MEDS: Amlodipine 10 MG TAB PO SCH (08:00)
[2019-06-23] MEDS: Sodium Chloride 0.45% 1,000 ML IV SCH ×3 (09:23→23:09)
[2019-06-23] MEDS: Vancomycin HCl 750 MG in Sodium Chloride 0.9% 250 ML 250 ML IVPB SCH ×2 (10:07→21:50)
[2019-06-23] MEDS ORDERED: Ergocalciferol 1.25 MG(50,000 UNITS) CAP PO SCH (10:45)
[2019-06-23 13:27] LABS: Urine Total Volume 2150 mL (800-1800)
[2019-06-23 13:29] LABS: Body Surface Area 1.9
[2019-06-23] MEDS ORDERED: Carvedilol 6.25 MG TAB PO SCH ×2 (13:30→21:00)
--- NOTE | 2019-06-23 13:37 | PRG ---
DATE OF SERVICE: Ebenezer Pederson is doing well today. Wound Care changed his wound VAC. They report the wound looked good, granulation. No necrotic tissue. There is no cellulitis. 98.2 degrees, 90, 150/68. White count 15 yesterday. Cultures from the wound reveal Streptococcus. At this point, there are no signs of progressive infection. I would recommend discharge home on oral antibiotics with outpatient wound VAC twice a week [facility] wound care. I will see him as needed. Please call if necessary. The patient is ready for discharge home today, [facility] VAC is available for discharge. I will see him as needed. Dr. Arroyo is covering this weekend should he need her services. Job ID: [id number]
--- NOTE | 2019-06-23 13:53 | PRG ---
DATE OF SERVICE: 06/23/2019 SERVICE: Nephrology. SUBJECTIVE: A 48-year-old male with uncontrolled diabetes mellitus, admitted due to DKA as well as severe sepsis from left elbow abscess with cellulitis. Nephrology is following the patient for MADELEINE and hyponatremia. The patient reports feeling better. Still having some pain at the right upper limb. Denied fever. Oral intake has improved. OBJECTIVE: VITAL SIGNS: Temperature 98.2, pulse 90, respiratory rate 18, SpO2 of 94% on room air, blood pressure is 161/89. GENERAL: Middle-aged male, in no obvious distress. Afebrile. Anicteric. Acyanotic. HEENT: Normocephalic, atraumatic. Oral mucosa is moist. CARDIOVASCULAR: Regular rhythm and rate with normal heart sounds 1 and 2. RESPIRATORY: Fair air entry bilaterally with no obvious crackle or rhonchi or use of accessory muscles. GI: Full, soft, nontender, nondistended with normal bowel sounds. EXTREMITIES: Left elbow and adjoining upper limb covered with dressing. Bilateral leg edema noted. DIRECTOR HYDROGEN STORAGE ENGINEERING: Conscious, alert, oriented x3 with appropriate mental status. Cranial nerves 2 through 12 are grossly intact. DIAGNOSTIC DATA: BMP today showed sodium 131, potassium 3.6, chloride 102, CO2 of 22, BUN 11, creatinine 1.61, glucose 89, calcium 7.6. Vitamin D level is 3.9. ASSESSMENT: 1. Acute kidney injury. Creatinine is down to 1.61 from 2.13 on admission. 2. Presumed chronic kidney disease. 3. Nephrotic range proteinuria. 4. Vitamin D deficiency. 5. Hypoalbuminemia. 6. Bilateral leg edema. 7. Anemia: Etiology is unclear. Anemia of chronic illness is a concern given possibility of chronic kidney disease. 8. Hypertension: Control is suboptimal. The patient certainly will benefit from RAAS anton given associated proteinuria. For now, due to acute kidney injury, we will avoid and RAAS anton is held at this time. PLAN: 1. Continue IV fluid therapy and monitor renal function. 2. Start vitamin D supplementation. 3. Await 24-hour urine protein collection. 4. Start carvedilol to his BP control. Job ID: [id number]
[2019-06-23 13:55] LABS: 24 Hr Creatinine 674.24 mg/24 hr (950-2490); Creatinine, Urine 31.36 mg/dL (63-166)
[2019-06-23 14:22] LABS: Protein - 24 Hr 12105 mg/24 hr (Less than 300); Protein, Urine 563 mg/dL (1-14)
[2019-06-23 14:23] LABS: Creatinine, Urine 31.36 mg/dL (63-166)
[2019-06-23 14:45] LABS: Microalbumin-Urine Greater than 200.0 mg/dL
--- NOTE | 2019-06-23 19:53 | PDOC.HOSPP ---
- Subjective Encounter Date: 06/23/19 Encounter Time: 18:30 Subjective: Patient seen and examined for LUE abscess with DKA. Pain controlled. No N/V. No new complaints. No overnight events - Objective Vital Signs & Weight: Vital Signs (12 hours) Temp Pulse Resp BP BP Pulse Ox 06/23/19 16:09 98.3 F 87 18 141/81 H 92 L 06/23/19 12:25 150/82 H 06/23/19 12:08 98.2 F 90 18 161/89 H 94 L 06/23/19 08:00 71 96 Weight Admit Weight 147 lb 3.2 oz Weight 147 lb 3.2 oz Most Recent Monitor Data Heart Rate from ECG 82 NIBP 148/107 NIBP BP-Mean 120 Respiration from ECG 15 SpO2 100 I&O: 06/22/19 06/23/19 06/24/19 06:59 06:59 06:59 Intake Total 2280 1900 Output Total 950 1050 700 Balance -950 1230 1200 Result Diagrams: 06/22/19 04:10 06/24/19 05:15 Additional Labs: Accuchecks 06/23/19 06/23/19 06/23/19 16:16 12:10 08:01 POC Glucose 156 H 145 H 102 06/23/19 06/22/19 06/22/19 04:04 23:35 20:04 POC Glucose 103 184 H 216 H ROS - Review of Systems Respiratory: denies: cough, dry, shortness of breath, hemoptysis, SOB with excertion, pleuritic pain, sputum, wheezing, other Cardiovascular: denies: chest pain, palpitations, orthopnea, paroxysmal noc. dyspnea, edema, light headedness, other - Medication Medications: Active Medications Generic Name Dose Route Start Last Admin Trade Name Freq PRN Reason Stop Dose Admin Hydrocodone Bitart/Acetaminophen 1 tab 06/20/19 19:49 06/21/19 10:15 [place] 5/325 PO 1 tab Q4H PRN Administration Moderate Pain (4-6) Hydrocodone Bitart/Acetaminophen 2 tab 06/20/19 19:49 06/23/19 18:39 [place] 5/325 PO 2 tab Q4H PRN Administration Severe Pain (7-10) Amlodipine Besylate 10 mg 06/22/19 09:00 06/23/19 08:00 Norvasc PO 10 mg DAILY RADHA Administration Enoxaparin Sodium 40 mg 06/22/19 09:00 06/23/19 08:00 Lovenox SC 40 mg 0900 RADHA Administration Famotidine 20 mg 06/21/19 09:00 06/23/19 08:00 Pepcid PO 20 mg DAILY RADHA Administration Piperacillin Sod/Tazobactam 100 mls @ 200 mls/hr 06/20/19 23:59 06/23/19 18: 54 Sod 3.375 gm/ Sodium Chloride IVPB 100 mls Q6HR RADHA Administration Sodium Chloride 1,000 mls @ 75 mls/hr 06/22/19 21:05 06/23/19 15:07 1/2 Normal Saline IV 1,000 mls .[id number] RADHA Administration Vancomycin HCl 750 mg/ Sodium 250 mls @ 250 mls/hr 06/22/19 22:00 06/23/19 10 :07 Chloride IVPB 250 mls 1000,2200 RADHA Administration Insulin Human Lispro 0 units 06/20/19 19:58 06/22/19 17:54 Humalog SC 4 unit .MODERATE SLIDING SC PRN Administration Moderate Correctional Scale Insulin Human Lispro 0 units 06/21/19 11:46 06/22/19 20:33 Humalog SC 2 unit .BEDTIME SLIDING SC PRN Administration Bedtime Correctional Scale Insulin Human NPH 10 unit 06/21/19 21:00 06/22/19 20:32 Humulin N SC 10 unit HS RADHA Administration Insulin Human NPH 10 unit 06/23/19 09:00 06/23/19 08:00 Humulin N SC 10 unit DAILY RADHA Administration Sodium Bicarbonate 650 mg 06/22/19 09:00 06/23/19 07:59 Bicarbonate, Sodium PO 650 mg BID RADHA Administration Sodium Chloride 10 ml 06/21/19 09:00 06/23/19 08:01 Flush - Normal Saline IVF 10 ml Q12HR RADHA Administration - Exam NAD Heart: RRR, no rubs Respiratory: CTAB, no rales Gastrointestinal: soft, non-tender Extremities: no edema Extremeties - other findings: LUE dressing with wound vac+ Hosp A/P (1) DKA (diabetic ketoacidoses) Code(s): E11.10 - TYPE 2 DIABETES MELLITUS WITH KETOACIDOSIS WITHOUT COMA Status: Acute Qualifiers: Diabetes mellitus type: type 2 Diabetes mellitus complication detail: without coma Qualified Code(s): E11.10 - Type 2 diabetes mellitus with ketoacidosis without coma (2) Abscess of left arm Code(s): L02.414 - CUTANEOUS ABSCESS OF LEFT UPPER LIMB Status: Acute (3) MADELEINE (acute kidney injury) Code(s): N17.9 - ACUTE KIDNEY FAILURE, UNSPECIFIED Status: Acute (4) HTN (hypertension) Code(s): I10 - ESSENTIAL (PRIMARY) HYPERTENSION Status: Chronic (5) CKD (chronic kidney disease) stage 3, GFR 30-59 ml/min Code(s): N18.3 - CHRONIC KIDNEY DISEASE, STAGE 3 (MODERATE) Status: Chronic (6) Medical non-compliance Code(s): Z91.19 - PATIENT'S NONCOMPLIANCE W OTH MEDICAL TREATMENT AND REGIMEN (7) Hypokalemia Code(s): E87.6 - HYPOKALEMIA Status: Acute (8) Hypomagnesemia Code(s): E83.42 - HYPOMAGNESEMIA Status: Acute (9) Hypophosphatemia Code(s): E83.39 - OTHER DISORDERS OF PHOSPHORUS METABOLISM Status: Acute - Plan s/p I&D for LUE abscess on 06/21 Cont Vancomycin and Zosyn Monitor Vancomycin level Cont NPH to 10 units BID Cont sliding scale Cont wound care Stable for discharge - Await home wound vac AM labs
[2019-06-23] MEDS: HumaLOG 300 UNITS/3 ML VIAL SC PRN (21:44)
[2019-06-24] MEDS: HYDROcodone/Acetaminophen 5/325 mg Tablet PO PRN ×5 (02:58→22:28)
[2019-06-24] MEDS: Piperacillin/Tazobactam 3.375 GM in Sodium Chloride 0.9% 100 ML IVPB SCH (05:09)
[2019-06-24] MEDS: Sodium Chloride 0.45% 1,000 ML IV SCH (05:15)
[2019-06-24 05:53] LABS: Anion Gap 12 mmol/L (10-20); BUN (Urea Nitrogen) 20 mg/dL (8.9-20.6); Calc. Creatinine Clearance 44 mL/min (70-130); Calcium 8.1 mg/dL (7.8-10.44); Carbon Dioxide 22 mmol/L (22-29); Chloride 101 mmol/L (98-107); Estimated GFR-MDRD 38; Glucose 64 mg/dL (70-105); Potassium 3.8 mmol/L (3.5-5.1); Sodium 131 mmol/L (136-145)
[2019-06-24] MEDS ORDERED: Carvedilol 6.25 MG TAB PO SCH (07:41)
[2019-06-24] MEDS: Carvedilol 25 MG TAB PO SCH ×2 (08:53→22:28)
[2019-06-24] MEDS: Famotidine 20 MG TAB PO SCH (08:53)
[2019-06-24] MEDS: Amlodipine 10 MG TAB PO SCH (08:53)
[2019-06-24] MEDS: Sodium Bicarbonate Tab 325 MG TAB PO SCH ×2 (08:53→22:27)
[2019-06-24] MEDS: Enoxaparin Sodium 40 MG/0.4 ML SYRINGE SC SCH (08:53)
[2019-06-24] MEDS: NPH, Human Insulin Isophane 300 UNIT/3 ML VIAL SC SCH (08:54)
[2019-06-24] MEDS: Amoxicillin/Potassium Clav 500 MG TAB PO SCH ×2 (10:20→22:27)
[2019-06-24] MEDS: HumaLOG 300 UNITS/3 ML VIAL SC PRN ×2 (11:36→13:38)
--- NOTE | 2019-06-24 15:49 | PRG ---
DATE OF SERVICE: 06/24/2019 SERVICE: Nephrology. SUBJECTIVE: A 48-year-old male with diabetes, admitted with DKA, being followed up for acute renal failure and nephrotic range proteinuria. The patient was found to have left elbow abscess, status post incision and drainage with wound VAC placement. He reportedly had symptomatic hypoglycemia earlier today associated with diaphoresis, which was treated appropriately. Feeling a lot better now. Denies headache, nausea, vomiting, abdominal pain, fever, or shortness of breath. OBJECTIVE: VITAL SIGNS: Temperature 97.3, pulse 81, respiratory rate 20, SpO2 of 93% on room air, blood pressure is 144/88. GENERAL: Thin, middle-aged male, in no obvious distress. Afebrile. Anicteric. HEENT: Normocephalic, atraumatic. Oral mucosa is moist. CARDIOVASCULAR: Regular rhythm and rate with normal heart sounds 1 and 2. RESPIRATORY: Fair air entry bilateral with few transmitted sounds. No obvious crackle, rhonchi, or use of accessory muscles appreciated. GI: Full, soft, nontender, nondistended with normal bowel sounds. EXTREMITIES: Left elbow and adjoining upper limb covered with dressing. Wound VAC noted. Mild bilateral leg edema noted. No erythema appreciated. CLIENT SPECIALIST: Conscious, alert, oriented x3. The patient has slow mentation, but otherwise moves all extremities symmetrically. DIAGNOSTIC DATA: BMP today showed sodium 131, potassium 3.8, chloride 101, CO2 of 22, BUN 20, creatinine 1.90, glucose 64, calcium 8.1. 24-hour urine protein was 12.1 g. Total urine volume was 2150 and 24-hour urine creatinine was 674 mg. ASSESSMENT: 1. Acute kidney injury: Etiology is not fully understood at this time. Clearly, the patient has some acute kidney injury from hemodynamic factors related to volume depletion due to hyperglycemia-induced diuresis. The patient, however, also has nephrotic range proteinuria. Review of medical records showed the patient had creatinine of 0.8 in 2014, but we do not have any other records between then and now. Creatinine has trended down worse with IV fluid to a андрей of 1.6 before creeping up today to 1.9. Of note, IV fluid was changed to solution yesterday. 2. Hyponatremia: Due to volume contraction with appropriate ADH secretion with some contribution from recently started solution. 3. Nephrotic range proteinuria: Etiology is unclear. The patient clearly has uncontrolled diabetes with hemoglobin A1c of 17, however, he denied overt diabetic retinopathy or symptoms. This makes other diagnosis possible. 4. Hypertension: Control is better, but still suboptimal. 5. Bilateral leg edema: Related to hypoalbuminemia. 6. Left elbow abscess and cellulitis, status post incision and drainage. 7. Uncontrolled diabetes mellitus with hemoglobin A1c of 17. 8. Moderate protein-calorie malnutrition. PLAN: 1. We will expand intravascular space with both crystalloid and colloid. We will give albumin as well as change half-normal saline to lactated Ringer and increase the rate to 100. We will recheck renal function tomorrow. 2. We will also get a kidney biopsy to assess the etiology of nephrotic range proteinuria. 3. We will also get lipid panel. 4. We will increase Coreg to get better blood pressure control. 5. Other treatment as per primary attending. Job ID: [id number]
[2019-06-24] MEDS: Albumin 25% 25 GM/100 ML BOT IVPB SCH ×2 (16:01→18:16)
[2019-06-24] MEDS: Lactated Ringer's 1,000 ML IV SCH (16:01)
--- NOTE | 2019-06-24 21:21 | PDOC.HOSPP ---
- Subjective Encounter Date: 06/24/19 Encounter Time: 11:30 Subjective: Patient seen and examined for DKA/Left arm abscess. No fever/chills/N. No new complaints. No overnight events - Objective Vital Signs & Weight: Vital Signs (12 hours) Temp Pulse Resp BP BP Pulse Ox 06/24/19 20:00 98.1 F 84 16 125/75 92 L 06/24/19 16:00 98.0 F 73 18 131/82 94 L 06/24/19 12:00 97.3 F L 81 20 144/88 H 93 L 06/24/19 11:00 97.0 F L Weight Admit Weight 147 lb 3.2 oz Weight 147 lb 3.2 oz Most Recent Monitor Data Heart Rate from ECG 82 NIBP 148/107 NIBP BP-Mean 120 Respiration from ECG 15 SpO2 100 I&O: 06/23/19 06/24/19 06/25/19 06:59 06:59 06:59 Intake Total 2280 4170 Output Total 1050 700 Balance 1230 3470 Result Diagrams: 06/22/19 04:10 06/25/19 06:45 Additional Labs: Accuchecks 06/24/19 06/24/19 06/24/19 19:54 16:07 13:03 POC Glucose 224 H 143 H 239 H 06/24/19 06/24/19 06/24/19 12:01 10:27 05:51 POC Glucose 309 H 267 H 86 06/24/19 06/23/19 06/23/19 05:13 23:41 19:55 POC Glucose 64 L 163 H 237 H ROS - Review of Systems Cardiovascular: denies: chest pain, palpitations, orthopnea, paroxysmal noc. dyspnea, edema, light headedness, other Gastrointestinal: denies: nausea, vomitting, abdominal pain, diarrhea, constipation, melena, hematochezia, other - Medication Medications: Active Medications Generic Name Dose Route Start Last Admin Trade Name Freq PRN Reason Stop Dose Admin Hydrocodone Bitart/Acetaminophen 1 tab 06/20/19 19:49 06/21/19 10:15 [place] 5/325 PO 1 tab Q4H PRN Administration Moderate Pain (4-6) Hydrocodone Bitart/Acetaminophen 2 tab 06/20/19 19:49 06/24/19 17:54 [place] 5/325 PO 2 tab Q4H PRN Administration Severe Pain (7-10) Amlodipine Besylate 10 mg 06/22/19 09:00 06/24/19 08:53 Norvasc PO 10 mg DAILY RADHA Administration Amoxicillin/Clavulanate Potassium 500 mg 06/24/19 09:00 06/24/19 10:20 Augmentin PO 500 mg Q12HR RADHA Administration Carvedilol 25 mg 06/24/19 09:00 06/24/19 08:53 Coreg PO 25 mg BID RADHA Administration Enoxaparin Sodium 40 mg 06/22/19 09:00 06/24/19 08:53 Lovenox SC 40 mg 0900 RADHA Administration Famotidine 20 mg 06/21/19 09:00 06/24/19 08:53 Pepcid PO 20 mg DAILY RADHA Administration Lactated Ringer's 1,000 mls @ 100 mls/hr 06/24/19 14:45 06/24/19 16:01 Lactated Ringer's IV 1,000 mls .Q10H RADHA Administration Insulin Human Lispro 0 units 06/20/19 19:58 06/24/19 13:38 Humalog SC 4 unit .MODERATE SLIDING SC PRN Administration Moderate Correctional Scale Insulin Human Lispro 0 units 06/21/19 11:46 06/23/19 21:44 Humalog SC 2 unit .BEDTIME SLIDING SC PRN Administration Bedtime Correctional Scale Sodium Bicarbonate 650 mg 06/22/19 09:00 06/24/19 08:53 Bicarbonate, Sodium PO 650 mg BID RADHA Administration Sodium Chloride 10 ml 06/21/19 09:00 06/24/19 13:49 Flush - Normal Saline IVF 10 ml Q12HR RADHA Administration - Exam NAD Neck: supple, no JVD Heart: RRR, no rubs Respiratory: CTAB, no rales Gastrointestinal: soft, non-tender, normal bowel sounds Extremities: no edema Extremeties - other findings: wound vac LUE + Hosp A/P (1) DKA (diabetic ketoacidoses) Code(s): E11.10 - TYPE 2 DIABETES MELLITUS WITH KETOACIDOSIS WITHOUT COMA Status: Acute Qualifiers: Diabetes mellitus type: type 2 Diabetes mellitus complication detail: without coma Qualified Code(s): E11.10 - Type 2 diabetes mellitus with ketoacidosis without coma (2) Abscess of left arm Code(s): L02.414 - CUTANEOUS ABSCESS OF LEFT UPPER LIMB Status: Acute (3) MADELEINE (acute kidney injury) Code(s): N17.9 - ACUTE KIDNEY FAILURE, UNSPECIFIED Status: Acute (4) HTN (hypertension) Code(s): I10 - ESSENTIAL (PRIMARY) HYPERTENSION Status: Chronic (5) CKD (chronic kidney disease) stage 3, GFR 30-59 ml/min Code(s): N18.3 - CHRONIC KIDNEY DISEASE, STAGE 3 (MODERATE) Status: Chronic (6) Medical non-compliance Code(s): Z91.19 - PATIENT'S NONCOMPLIANCE W OTH MEDICAL TREATMENT AND REGIMEN (7) Hypokalemia Code(s): E87.6 - HYPOKALEMIA Status: Acute (8) Hypomagnesemia Code(s): E83.42 - HYPOMAGNESEMIA Status: Acute (9) Hypophosphatemia Code(s): E83.39 - OTHER DISORDERS OF PHOSPHORUS METABOLISM Status: Acute - Plan s/p I&D for LUE abscess on 06/21 Cont Augmentin Increase NPH to 14 units daily Cont sliding scale Cont wound care Will discharge home - home wound vac arranged Update - Patient refusing to leave since he does not have transportation for wound care appt. Consult CM.
[2019-06-25] MEDS: HYDROcodone/Acetaminophen 5/325 mg Tablet PO PRN ×6 (02:40→22:05)
[2019-06-25] MEDS: Lactated Ringer's 1,000 ML IV SCH ×3 (02:42→22:08)
[2019-06-25 07:05] LABS: INR-International Normal Ratio 0.9; PTT 34.3 SEC (22.9-36.1); Prothrombin Time 11.8 SEC (12.0-14.7)
[2019-06-25 07:20] LABS: Anion Gap 13 mmol/L (10-20); BUN (Urea Nitrogen) 20 mg/dL (8.9-20.6); Calc. Creatinine Clearance 47 mL/min (70-130); Carbon Dioxide 22 mmol/L (22-29); Chloride 102 mmol/L (98-107); Estimated GFR-MDRD 40; Glucose 214 mg/dL (70-105); Potassium 4.1 mmol/L (3.5-5.1); Sodium 133 mmol/L (136-145)
[2019-06-25] MEDS: Sodium Bicarbonate Tab 325 MG TAB PO SCH ×2 (09:14→20:06)
[2019-06-25] MEDS: Amlodipine 10 MG TAB PO SCH (09:14)
[2019-06-25] MEDS: Famotidine 20 MG TAB PO SCH (09:14)
[2019-06-25] MEDS: Amoxicillin/Potassium Clav 500 MG TAB PO SCH ×2 (09:14→20:06)
[2019-06-25] MEDS: Carvedilol 25 MG TAB PO SCH ×2 (09:15→20:06)
[2019-06-25] MEDS: Heparin 5,000 UNITS/ML VIAL SC SCH ×2 (09:15→22:07)
[2019-06-25] MEDS: NPH, Human Insulin Isophane 300 UNIT/3 ML VIAL SC SCH (09:15)
--- NOTE | 2019-06-25 10:29 | PDOC.HOSPP ---
- Subjective Encounter Date: 06/25/19 Encounter Time: 10:00 Subjective: Patient seen and examined for LUE cellulitis/DKA. No SOB/fever/chills. No new complaints. No overnight events - Objective Vital Signs & Weight: Vital Signs (12 hours) Temp Pulse Resp BP BP Pulse Ox 06/25/19 09:14 78 129/71 06/25/19 08:18 98.3 F 78 18 129/71 92 L Weight Admit Weight 147 lb 3.2 oz Weight 147 lb 3.2 oz Most Recent Monitor Data Heart Rate from ECG 82 NIBP 148/107 NIBP BP-Mean 120 Respiration from ECG 15 SpO2 100 I&O: 06/24/19 06/25/19 06/26/19 06:59 06:59 06:59 Intake Total 4170 Output Total 700 Balance 3470 Result Diagrams: 06/22/19 04:10 06/25/19 06:45 Additional Labs: Accuchecks 06/25/19 06/24/19 06/24/19 06:04 19:54 16:07 POC Glucose 234 H 224 H 143 H 06/24/19 06/24/19 06/24/19 13:03 12:01 10:27 POC Glucose 239 H 309 H 267 H ROS - Review of Systems Respiratory: denies: cough, dry, shortness of breath, hemoptysis, SOB with excertion, pleuritic pain, sputum, wheezing, other Cardiovascular: denies: chest pain, palpitations, orthopnea, paroxysmal noc. dyspnea, edema, light headedness, other - Medication Medications: Active Medications Generic Name Dose Route Start Last Admin Trade Name Freq PRN Reason Stop Dose Admin Hydrocodone Bitart/Acetaminophen 1 tab 06/20/19 19:49 06/21/19 10:15 [place] 5/325 PO 1 tab Q4H PRN Administration Moderate Pain (4-6) Hydrocodone Bitart/Acetaminophen 2 tab 06/20/19 19:49 06/25/19 10:16 [place] 5/325 PO 2 tab Q4H PRN Administration Severe Pain (7-10) Amlodipine Besylate 10 mg 06/22/19 09:00 06/25/19 09:14 Norvasc PO 10 mg DAILY RADHA Administration Amoxicillin/Clavulanate Potassium 500 mg 06/24/19 09:00 06/25/19 09:14 Augmentin PO 500 mg Q12HR RADHA Administration Carvedilol 25 mg 06/24/19 09:00 06/25/19 09:15 Coreg PO 25 mg BID RADHA Administration Famotidine 20 mg 06/21/19 09:00 06/25/19 09:14 Pepcid PO 20 mg DAILY RADHA Administration Heparin Sodium (Porcine) 5,000 units 06/25/19 09:00 06/25/19 09:15 Heparin SC 06/25/19 23:59 Not Given BID RADHA Lactated Ringer's 1,000 mls @ 100 mls/hr 06/24/19 14:45 06/25/19 02:42 Lactated Ringer's IV Not Given .Q10H RADHA Insulin Human Lispro 0 units 06/20/19 19:58 06/24/19 13:38 Humalog SC 4 unit .MODERATE SLIDING SC PRN Administration Moderate Correctional Scale Insulin Human Lispro 0 units 06/21/19 11:46 06/23/19 21:44 Humalog SC 2 unit .BEDTIME SLIDING SC PRN Administration Bedtime Correctional Scale Insulin Human NPH 14 unit 06/24/19 13:36 06/25/19 09:15 Humulin N SC 14 unit DAILY RADHA Administration Sodium Bicarbonate 650 mg 06/22/19 09:00 06/25/19 09:14 Bicarbonate, Sodium PO 650 mg BID RADHA Administration Sodium Chloride 10 ml 06/21/19 09:00 06/25/19 09:16 Flush - Normal Saline IVF Not Given Q12HR RADHA - Exam NAD Neck: supple, no JVD Heart: RRR, no gallops Respiratory: CTAB, no rales, no ronchi Gastrointestinal: soft, non-tender, non-distended, normal bowel sounds Extremities: no edema Extremeties - other findings: LUE dressing/wound vac+ Psychiatric: normal affect, A&O x 3 Hosp A/P (1) DKA (diabetic ketoacidoses) Code(s): E11.10 - TYPE 2 DIABETES MELLITUS WITH KETOACIDOSIS WITHOUT COMA Status: Acute Qualifiers: Diabetes mellitus type: type 2 Diabetes mellitus complication detail: without coma Qualified Code(s): E11.10 - Type 2 diabetes mellitus with ketoacidosis without coma (2) Abscess of left arm Code(s): L02.414 - CUTANEOUS ABSCESS OF LEFT UPPER LIMB Status: Acute (3) MADELEINE (acute kidney injury) Code(s): N17.9 - ACUTE KIDNEY FAILURE, UNSPECIFIED Status: Acute (4) HTN (hypertension) Code(s): I10 - ESSENTIAL (PRIMARY) HYPERTENSION Status: Chronic (5) CKD (chronic kidney disease) stage 3, GFR 30-59 ml/min Code(s): N18.3 - CHRONIC KIDNEY DISEASE, STAGE 3 (MODERATE) Status: Chronic (6) Medical non-compliance Code(s): Z91.19 - PATIENT'S NONCOMPLIANCE W OTH MEDICAL TREATMENT AND REGIMEN (7) Hypokalemia Code(s): E87.6 - HYPOKALEMIA Status: Acute (8) Hypomagnesemia Code(s): E83.42 - HYPOMAGNESEMIA Status: Acute (9) Hypophosphatemia Code(s): E83.39 - OTHER DISORDERS OF PHOSPHORUS METABOLISM Status: Acute - Plan hospital social worker Cont Augmentin Cont NPH 14 units daily Cont sliding scale Cont wound care s/p I&D for LUE abscess on 06/21 Patient refusing to leave since he does not have transportation for wound care appt. Consult CM. Stable for discharge Outpatient wound vac arranged
[2019-06-25] MEDS: HumaLOG 300 UNITS/3 ML VIAL SC PRN ×2 (12:05→17:10)
--- NOTE | 2019-06-25 14:00 | PRG ---
DATE OF SERVICE: 06/25/2019 SERVICE: Nephrology. SUBJECTIVE: A 48-year-old male being followed up for acute kidney injury, nephritic syndrome, nephrotic range proteinuria, and hyponatremia. The patient was admitted due to left upper limb abscess and cellulitis associated with DKA. He is clinically improved. Denied any new complaint. Has been afebrile. Denied nausea, vomiting. OBJECTIVE: VITAL SIGNS: Temperature 98.3, pulse 78, respiratory rate 18, SpO2 of 92 on room air, blood pressure is 129/71. GENERAL: Middle-aged male, in no obvious distress. Afebrile. Anicteric. Acyanotic. HEENT: Normocephalic, atraumatic. Oral mucosa is moist. CARDIOVASCULAR: Regular rhythm and rate with normal heart sounds 1 and 2. RESPIRATORY: Fair air entry bilaterally with no obvious crackle or rhonchi or use of accessory muscles. GI: Full, soft, nontender, nondistended with normal bowel sounds. EXTREMITIES: Left elbow and adjoining upper limb covered with dressing. Wound VAC noted. Other extremities are grossly atraumatic. Moderate bilateral leg edema noted. RECORDS SPECIALIST: Conscious, alert, oriented x3 with appropriate mental status. Cranial nerves 2 through 12 are grossly intact. DIAGNOSTIC DATA: BMP showed sodium 133, potassium 4.1, chloride 102, CO2 of 22, BUN 20, creatinine 1.81, glucose 214, calcium 8.0. ASSESSMENT: 1. Acute kidney injury. 2. Possible nephrotic syndrome. 3. Chronic kidney disease: Baseline creatinine is unclear, but the patient had normal creatinine of 0.8 in 2015. 4. Hyponatremia: Due to volume depletion with appropriate ADH secretion. Levels are increasing with crystalloid. 5. Hypertension, control is better and within acceptable range. 6. Bilateral leg edema. 7. Left elbow abscess and cellulitis, status post incision and drainage with wound VAC placement. 8. Uncontrolled diabetes mellitus with hemoglobin A1c of 17. 9. Moderate protein calorie malnutrition. 10. Anemia of chronic kidney disease. PLAN: 1. Continue crystalloid therapy with lactated Ringer's. 2. Continue to monitor BMP. 3. The patient is for renal biopsy and evaluation of the nephritic range proteinuria tomorrow. 4. Continue current antihypertensives. Job ID: [id number]
[2019-06-26] MEDS: HYDROcodone/Acetaminophen 5/325 mg Tablet PO PRN ×4 (02:18→14:29)
[2019-06-26] MEDS: Lactated Ringer's 1,000 ML IV SCH ×3 (02:20→13:14)
[2019-06-26 04:38] LABS: #Eosinphils 0.2 thou/uL (0.0-0.7); #Lymphocytes 1.7 thou/uL (1.20-3.40); #Neutrophils 8.9 thou/uL (1.40-6.50); %Basophils 0.1 % (0.0-1.0); %Eosinophils 1.6 % (0.0-10.0); %Lymphocytes 14.6 % (21.0-51.0); %Monocytes 8.5 % (0.0-10.0); %Neutrophils 75.2 % (42.0-75.0); Mean Corpuscular HGB CONC 34.4 g/dL (32.0-36.0); Mean Corpuscular Hemoglobin 32.7 pg (27.0-31.0); Mean Platelet Volume 6.2 fL (7.4-10.4); Platelet Count 494 thou/uL (130-400); Red Blood Cell (RBC) Count 3.04 mill/uL (4.70-6.10); White Blood Cell (WBC) Count 11.8 thou/uL (4.8-10.8)
[2019-06-26 05:00] LABS: Albumin 2.3 g/dL (3.5-5.0); Anion Gap 11 mmol/L (10-20); BUN (Urea Nitrogen) 24 mg/dL (8.9-20.6); Calc. Creatinine Clearance 45 mL/min (70-130); Calcium 7.9 mg/dL (7.8-10.44); Carbon Dioxide 23 mmol/L (22-29); Cardiac Risk 3.3 (Less than 4.5); Chloride 102 mmol/L (98-107); Cholesterol 135 mg/dl (< 200 Desired); Estimated GFR-MDRD 39; Glucose 270 mg/dL (70-105); HDL Cholesterol 41 mg/dL (>60 Neg Risk); LDL Cholesterol, Calculated 61 mg/dL; Phosphorus 3.7 mg/dL (2.3-4.7); Potassium 4.6 mmol/L (3.5-5.1); Sodium 131 mmol/L (136-145); Triglycerides 166 mg/dL (Less than 150)
[2019-06-26] MEDS: Carvedilol 25 MG TAB PO SCH (09:56)
[2019-06-26] MEDS: Amlodipine 10 MG TAB PO SCH (09:56)
[2019-06-26] MEDS: Sodium Bicarbonate Tab 325 MG TAB PO SCH (09:56)
[2019-06-26] MEDS: Famotidine 20 MG TAB PO SCH (09:56)
[2019-06-26] MEDS: Amoxicillin/Potassium Clav 500 MG TAB PO SCH (09:56)
[2019-06-26] MEDS: NPH, Human Insulin Isophane 300 UNIT/3 ML VIAL SC SCH (10:12)
--- NOTE | 2019-06-26 11:33 | PRG ---
DATE OF SERVICE: Ebenezer Pederson is doing well today. His wound looks very good. His wound VAC was removed. His discharge was delayed because of lack of transportation for wound care as an outpatient. Today, there is no cellulitis. The tunnels have resolved. There are two small open wounds. I have recommended that we discontinue the VAC dressing and recommend that daily he wash these wounds with soap and water and place a saline wet-to-dry dressing. If the patient is incapable of doing that, he could just place a gauze dressing and/or antibiotic ointment and Band-Aid and they will heal fine. I will see him in office in 2 weeks. He can go home with oral antibiotics. I will see him as needed this hospitalization. Please call if necessary. Job ID: [id number]
[2019-06-26] MEDS ORDERED: Midazolam HCl 2 mg/2 ml Vial ONE (11:41)
[2019-06-26] MEDS ORDERED: Fentanyl 100 MCG/2 ML VIAL ONE (11:41)
[2019-06-26] MEDS ORDERED: Sodium Bicarbonate 2.5 MEQ/5 ML VIAL ONE (11:41)
[2019-06-26] MEDS: HumaLOG 300 UNITS/3 ML VIAL SC PRN ×2 (13:08→16:38)
--- NOTE | 2019-06-26 13:51 | CT ---
CT Renal Perc Biopsy CT GUIDED RIGHT RENAL BIOPSY: CLINICAL HISTORY: Acute on chronic renal insufficiency. PROCEDURE: Informed consent was obtained and the patient was escorted to the procedural suite, placed in prone p osition. Conscious sedation for a total of 45 minutes was performed, administered by the radiology nurse, with the patient consistently monitored throughout the duration of the exam in stable conditio n. The patient's skin was prepped and draped in a standard sterile fashion and topical anesthesia with buffered 1% lidocaine was performed. After a small skin incision was made, an 18-gauge needle we re advanced to the leading edge of the right kidney, posterior lower pole. After adequate placement was confirmed with CT fluoroscopic imaging, 2 subsequent core specimens were obtained via percutaneou s biopsy. These were confirmed with CT fluoroscopic imaging and the specimens were submitted to the pathologist for adequacy. Specimens were deemed adequate for interpretation. Therefore, all devices w ere then removed from the patient. No unexpected procedural complications were present. The patient was monitored in radiology holding i n stable condition prior to discharge with family member. IMPRESSION: Technically successful percutaneous right renal biopsy. Pathology results are pending.
--- NOTE | 2019-06-26 15:07 | PRG ---
DATE OF SERVICE: 06/26/2019 SERVICE: Nephrology. SUBJECTIVE: A 48-year-old male being followed up for renal insufficiency. The patient was found to have nephrotic-range proteinuria associated with leg edema. The patient was admitted due to left arm abscess with cellulitis and DKA. Clinically improved. OBJECTIVE: VITAL SIGNS: Temperature 98.2, pulse 87, respiratory rate 18, SpO2 of 95% on room air, and blood pressure is 158/86. GENERAL: Slim, middle-aged male, in no obvious distress. Afebrile. HEENT: Normocephalic, atraumatic. Oral mucosa is moist. CARDIOVASCULAR: Regular rhythm and rate with normal heart sounds 1 and 2. RESPIRATORY: Fair air entry bilaterally with no crackle or rhonchi or use of accessory muscles. GASTROINTESTINAL: Full, soft, nontender, and nondistended with normal bowel sounds. EXTREMITIES: Left elbow, dressing noted. Moderate bilateral leg edema noted as well. CENTRAL NERVOUS SYSTEM: Conscious and alert and oriented x3. Cranial nerves II through XII are grossly intact. The patient seems to have some cognitive slow mentation. DIAGNOSTIC DATA: CBC showed WBC count of 11.8, hemoglobin of 10, MCV of 95.0, and platelet count of 494. CMP showed sodium 131, potassium 4.6, chloride 102, CO2 of 23, BUN 24, creatinine 1.86, glucose 270, calcium 7.9, phosphorus 3.7, and albumin 2.3. Fasting lipid panel shows triglyceride 166, cholesterol 135, LDH 61, and HDL 41. Vitamin D level is 3.9. Hemoglobin A1c is 17.2. ASSESSMENT: 1. Acute kidney injury. There seems to be baseline chronic kidney disease. Creatinine seems to be stable at around 1.9. 2. Nephritic syndrome. 3. Chronic kidney disease, stage 3. 4. Hyponatremia. 5. Hypoalbuminemia. 6. Hypertension. 7. Bilateral leg edema. 8. Left elbow abscess and cellulitis. 9. Diabetic ketoacidosis. 10. Uncontrolled hypertension. 11. Insulin-induced hypoglycemia. 12. Moderate protein-calorie malnutrition. 13. Anemia of chronic kidney disease. PLAN: 1. The patient can be discharged from Nephrology [id number] after renal biopsy. 2. The patient ideally will benefit from lisinopril, but we will await renal biopsy and repeat renal function panel before starting these. 3. We will start the patient on diuretics. We will also discontinue IV fluid as creatinine has stabilized. 4. Follow up in 1 week. Recommended strongly to review renal biopsy test. Many thanks for involving us in the care of this patient. We will follow up in the outpatient. Job ID: [id number]
[2019-06-26 15:12] VITALS: BP 137/70; TEMP 97.6
--- NOTE | 2019-06-27 10:12 | DIS ---
DATE OF ADMISSION: 06/20/2019 DATE OF DISCHARGE: 06/26/2019 DISCHARGE DISPOSITION: Home. FOLLOWUP: 1. Follow up with primary care physician at [facility] in 1 week. 2. Follow up with Dr. Escalante in 2 weeks. 3. Follow up with Nephrology, Dr. Schreiber in 1 week. ALLERGIES: NO KNOWN DRUG ALLERGIES. DISCHARGE MEDICATIONS: 1. Augmentin 500 mg b.i.d. for 1 week. 2. Amlodipine 10 mg daily. 3. Lasix 40 mg daily. 4. Novolin 70/30 of 10 units b.i.d. with meals. 5. Sodium bicarbonate 650 mg b.i.d. 6. Tramadol as needed. The patient was seen and examined on the day of discharge. Denies any new complaints. No chest pain, shortness of breath, or palpitations reported. BRIEF HOSPITAL COURSE: The patient is a 48-year-old male with diabetes mellitus type 2 and medication noncompliance, presented to the hospital with left arm swelling. His workup was consistent with diabetic ketoacidosis along with left arm abscess. He was monitored in the intermediate care unit. He was started on insulin drip per protocol. His hemoglobin A1c was 17.2. Later on, the insulin drip was transitioned to subcu insulin. He was transferred out of the intermediate care unit. He was seen by General Surgery for left arm abscess. On June,, the patient underwent incision and drainage of the complicated abscess in the left arm with washout and application of wound VAC. He also had a central line placed due to poor IV access. The patient was also seen by Nephrology due to acute kidney injury with creatinine 2.13 on admission. His creatinine stabilized around 1.8 to 1.9. He underwent 24-hour urine that showed 12 g proteinuria. Renal biopsy has been obtained on the day of discharge per Nephrology recommendation. He will follow up with Nephrology as outpatient for the biopsy report. He was extensively counseled to be compliant with all of his medications along with insulin. Wound VAC has been discontinued on the day of discharge by Dr. Escalante. He was educated extensively on wound care. Please note that the patient is a very high risk of readmission due to medication noncompliance. FINAL DIAGNOSES: 1. Diabetic ketoacidosis. 2. Left arm abscess. 3. Acute kidney injury on chronic kidney disease stage 3. 4. Hypertension. 5. Hypokalemia, replaced. 6. Hypomagnesemia, replaced. 7. Hypophosphatemia, replaced. 8. Medication noncompliance. 9. Hypoalbuminemia secondary to proteinuria. 10. Metabolic acidosis on admission secondary to diabetic ketoacidosis. 11. Chronic anemia. LABORATORY DATA: Significant labs; blood sugar on admission 743 with sodium of 119, bicarbonate 17. Hemoglobin A1c 17.2. Albumin 2.1. TIME SPENT: Total time coordinating the discharge of this patient was 40 minutes. Medications have been arranged through [facility] assistance [facility]. Job ID: [id number]
--- NOTE | 2019-06-29 09:32 | PQF ---
[employer] Supervisor [employer] Winform Viewer JIGNA JALLOH MD [id number] CLINICAL DOCUMENTATION CLARIFICATION FORM: POST DISCHARGE Addendum to original discharge summary date: ____ Late entry note date: __ DATE: 06/29/2019 ATTN: JIGNA JALLOH MD Please exercise your independent, professional judgment in responding to the clarification form. Clinical indicators are provided on the bottom of this form for your review Please check appropriate box(s) to clarify if the following diagnosis has been ruled in or ruled out: SEPSIS [ x ] Ruled in diagnosis [ ] Continue to treat [ x ] Resolved [ ] Ruled out diagnosis [ ] Cannot rule out diagnosis [ ] Other diagnosis [ ] Unable to determine For continuity of documentation, please document condition throughout progress notes and discharge summary. Thank You. CLINICAL INDICATORS - SIGNS / SYMPTOMS / LABS -Sepsis-H&P, 06/20, Josep Schumacher MD -Abscess of the upper extremity-H&P, 06/20, Josep Schumachre MD -Pulse:91, RR:22, Temp:98.1-H&P, 06/20, Josep Schumacher MD -WBC:15.8-H&P, 06/20, Josep Schumacher MD -left arm abscess, MADELEINE on CKD3-DS, 06/26, Jigna Jalloh MD -Metabolic acidosis on admission sec to diabetic ketoacidosis--DS, 06/26, Jigna Jalloh MD RISK FACTORS -DKA-H&P, 06/20, Josep Schumacher MD -Acute kidney injury-Progress note, 06/26, Oren Schreiber MD TREATMENTS -Zosyn.IV-DEC, 06/20 -Vancomycin.IV-DEC, 06/20 - Incision and drainage-OP report, 06/20, Boris Castro MD (This form is maintained as a part of the permanent medical record) 2014 [employer]. All Rights Reserved Hardy Rueda [not provided] [not provided] MTDD
[2019-06-30] MEDS ORDERED: Ergocalciferol 1.25 MG(50,000 UNITS) CAP PO SCH (09:00)
== END 2019-06-26 18:09 | disposition home or self-care (01) | DRG 853 ==
LOC: ERS 16:10 → T4-A 18:07 → ERHOLD 20:06 → IMCU/EMU 22:44 → T4-A 06-21 13:56
PROVIDERS: ADMIT Hospitalist; ATTEND Hospitalist
PROC: 0K980ZZ Drainage of Left Upper Arm Muscle, Open Approach (ICD-10-PCS; principal; 2019-06-21)
PROC: 02HV33Z Insertion of Infusion Device into Superior Vena Cava, Percutaneous Approach (ICD-10-PCS; 2019-06-21)
DX: A41.9 Sepsis, unspecified organism (principal); E11.10 Type 2 diabetes mellitus with ketoacidosis without coma; L02.414 Cutaneous abscess of left upper limb; E87.1 Hypo-osmolality and hyponatremia; Z68.1 Body mass index [BMI] 19.9 or less, adult; E44.0 Moderate protein-calorie malnutrition; L03.114 Cellulitis of left upper limb; N17.9 Acute kidney failure, unspecified; E11.628 Type 2 diabetes mellitus with other skin complications; I12.9 Hypertensive chronic kidney disease with stage 1 through stage 4 chronic kidney disease, or unspecified chronic kidney disease; E11.22 Type 2 diabetes mellitus with diabetic chronic kidney disease; N18.3 Chronic kidney disease, stage 3 (moderate); E87.6 Hypokalemia; E83.42 Hypomagnesemia; E83.39 Other disorders of phosphorus metabolism; F32.9 Major depressive disorder, single episode, unspecified; E11.40 Type 2 diabetes mellitus with diabetic neuropathy, unspecified; E11.649 Type 2 diabetes mellitus with hypoglycemia without coma; E88.09 Other disorders of plasma-protein metabolism, not elsewhere classified; E55.9 Vitamin D deficiency, unspecified; D63.1 Anemia in chronic kidney disease; Z91.14 Patient's other noncompliance with medication regimen; Z79.4 Long term (current) use of insulin; Z89.421 Acquired absence of other right toe(s)
CPT/HCPCS: 36415; 36416; 50200; 71045; 76770; 77012; 80048; 80053; 80061; 80069; 80202; 81015; 82010; 82043; 82306; 82550; 82570; 82575; 83036; 83605; 83735; 84100; 84156; 84300; 84540; 85025; 85610; 85730; 87040; 87070; 87077; 87205; 88305; 88313; 88329; 88346; 88348; 88350; 90471; 90715; 96361; 96365; 96367; 96375; J0670; J1200; J1644; J1650; J1815; J2001; J2250; J2405; J2543; J2704; J3010; J3370; J3490; J7050; P9047